=== PATIENT | male | born 1965 | race Caucasian/White ===

== ENCOUNTER 2025-01-01 16:03 | Emergency (ER) | payer OTHER, SELFPAY ==
[2025-01-01] VITALS (8 sets, daily range): BP systolic 130–149; BP diastolic 82–102; PULSE 58–94; RESP 18–20; TEMP 36.5; O2SAT 94–97; BMI 31.5
--- OUTSIDE RECORDS SUMMARY | 2025-01-01 16:05 | XMS_ITS | Clinical Summary ---
Author Organization [facility] Address [address], [place] [address] Care Team Providers Care Container Filler Name Role Phone Found, No Pcp MD Primary Care Provider Unavailab le Source Comments You are receiving this document as you are listed as the primary care provider,follow-up provider, or the patient has been referred to you for consultation.This is in compliance with the Medicare andMedicaid EHR Incentive Program,which states Providers who transition their patient to another setting of careor provider of care or refers their patient to another provider of care shouldprovide summary care record for each transition of care or referral. [facility] Allergies No known active allergies Medications No known medications Social History Tobacco Use Types Packs/Day Years Used Date Smoking Tobacco: Never Alcohol Use Standard Drinks/Week Comments Yes 0 (1 standard drink = 0.6 oz pur e alcohol) Sex and Gender Information Value Date Recorded Sex Assigned at Not on file Legal Sex Male 12:10 PM CDT Gender Identity Not on file Sexual Orientation Not on file Last Filed Vital Signs Vital Sign Reading Time Taken Comments Blood Pressure 110/70 06/19/2016 2:22 PM CDT Pulse 68 06/19/2016 2:22 PM CDT Temperature - - Respiratory Rate 16 06/19/2016 2:22 PM CDT Oxygen Saturation - - Inhaled Oxygen Concentration - - Weight 88.9 kg (196 lb) 06/19/2016 2:22 PM CDT Height 167.6 cm (5' 6) 06/19/2016 2:22 PM CDT Body Mass Index 31.64 06/19/2016 2:22 PM CDT Plan of Treatment Health Maintenance Due Date Last Done Comments Colon Cancer Screening Plan Due 1965 Hep C Screening (Preventive Services) 1965 PSA Screening Discussion 1965 HIV Screening (Preventive Services) 1981 Adult Preventive Visit 1983 DTaP/Tdap/Td (1 - Tdap) 1984 HepB (1) 1984 Cholesterol 2000 Pneumococcal 50+ Yrs (1 of 1 - PCV) 2015 Zoster/Shingles (1 of 2) 2015 COVID-19 Vaccine ( - 2023-2 5 season) 2024 Influenza (#1) 2024 HepA Aged Out No longer eligi ble based on patient's age to complete this topic Hib Aged Out No longer eligi ble based on patient's age to complete this topic IPV (Polio) Aged Out No longer eligi ble based on patient's age to complete this topic MCV4 Aged Out No longer eligi ble based on patient's age to complete this topic Meningococcal B Aged Out No longer el igible based on patient's age to complete this topic Care Teams Container Filler Relationship Specialty Start Date End Date Found, No Pcp, [address] [place] [address] PCP - General 02/14/18
--- OUTSIDE RECORDS SUMMARY | 2025-01-01 16:05 | XMS_ITS | Clinical Summary ---
Author Organization [facility] Address [address] [place] [id number] Care Team Providers Care Heeler Machine Name Role Phone Pcp, No Primary Care Provider Unavailabl e Allergies No known active allergies Medications buPROPion (WELLBUTRIN) 100 mg tablet Take 1 tablet by mouth 2 times daily. 0 01/07/2018 Active Social History Tobacco Use Types Packs/Day Years Used Date Smoking Tobacco: Former Cigarettes 1 20 Smokeless Tobacco: Never Alcohol Use Standard Drinks/Week Comments No 0 (1 standard drink = 0.6 oz pur e alcohol) Sex and Gender Information Value Date Recorded Sex Assigned at Not on file Legal Sex Male 8:14 AM CDT Gender Identity Not on file Sexual Orientation Not on file Obstetrics History Last Filed Vital Signs Vital Sign Reading Time Taken Comments Blood Pressure 137/83 01/07/2018 10:38 AM CDT Pulse 53 01/07/2018 10:38 AM CDT Temperature 36.3 C (97.3 F) 01/07/2018 10:38 AM CDT Respiratory Rate - - Oxygen Saturation 99% 01/07/2018 10:38 AM CDT Inhaled Oxygen Concentration - - Weight 94.8 kg (209 lb 1.6 oz) 01/07/2018 10:38 AM CDT Height 167.4 cm (5' 5.91) 01/07/2018 10:38 AM C DT Body Mass Index 33.85 01/07/2018 10:38 AM CDT Plan of Treatment Health Maintenance Due Date Last Done Comments Tdap 1976 Depression screening for age 12+ 1977 HIV for age 15-65 1980 Hepatitis C screening for age 18-79 1983 Tetanus booster 1985 Colonoscopy through age 75 2010 Lipids for age 45-75 2010 Pneumococcal series for age 50+ (1 of 1 - PCV) 015 Zoster (shingles) series for age 50+ (1 of 2) 03/17/20 15 BMI (ht and wt on same day) for age 18+ 01/07/2019 0 01/07/2018 COVID-19 vaccine series (2023- season) 4 Influenza Vaccine (#1) 2024 Insurance [facility] [place] [address] Care Teams Heeler Machine Relationship Specialty Start Date End Date Pcp, No . PCP - General 01/07/18
--- NOTE | 2025-01-01 16:22 | CRLHL7_ITS ---
For Patients: As a result of the Century Cures Act, medical imaging exams and procedure reports are released immediately into your electronic medical record. You may view this report before your referring provider. If you have questions, please contact your health care provider. Indication: Trauma. Technique: Noncontrast CT images of the cervical spine. Comparison: None. Findings: Recent fracture of the C1 anterior arch demonstrating 5 mm distraction. Recent fractures of the C1 posterior arches, demonstrating mild distraction on the right. No widening of the atlantooccipital or atlantoaxial joints. The atlantodental interval is maintained. The cervical lordosis is maintained. Mild rightward cervical curvature. Multilevel disc height loss, severe at C6-7. Multilevel posterior disc osteophyte complex is contributing to mild spinal canal narrowing. Multilevel uncinate spurring and facet arthropathy contributing up to moderate neural foraminal stenosis bilaterally at C6-7. No concerning opacities in the visualized lungs. Impression: 1. Recent, distracted fractures of the C1 anterior and posterior arches (Martínez fracture). No widening of the atlantodental interval or atlantooccipital joints. 2. Multilevel cervical spondylosis without high-grade spinal canal stenosis. Please note that all CT scans at this facility use dose modulation, iterative reconstruction, and/or weight-based dosing when appropriate to reduce radiation dose to as low as reasonably achievable. Dictated by Randal Josue MD @ 01/01/2025 5:02:00 PM (Electronically Signed)
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
--- OUTSIDE RECORDS SUMMARY | 2025-01-01 16:43 | XMS_ITS | Clinical Summary ---
Author Organization [facility] Address [address] [place] [id number] Care Team Providers Care Kitchen Cleaner Name Role Phone Pcp, No Primary Care [...] season) 4 Influenza Vaccine (#1) 2024 Insurance [facility] Care Teams Kitchen Cleaner Relationship Specialty Start Date End Date Pcp, No . PCP - General 01/07/18
--- OUTSIDE RECORDS SUMMARY | 2025-01-01 16:43 | XMS_ITS | Clinical Summary ---
Author Organization [facility] Address [address] [address] Care Team Providers Care Office Helper Name Role Phone Found, No Pcp MD [...] age to complete this topic Care Teams Office Helper Relationship Specialty Start Date End Date Found, No Pcp, [address] [place] [address] PCP - General 02/14/18
== END 2025-01-01 19:30 | disposition other institution (70) ==
PROVIDERS: Emergency Provider Family Medicine
DX: S12.01XA Stable burst fracture of first cervical vertebra, initial encounter for closed fracture (principal); V19.3XXA Pedal cyclist (driver) (passenger) injured in unspecified nontraffic accident, initial encounter
CPT/HCPCS: 72125; 99284; 99285

== ENCOUNTER 2025-01-01 19:16 | Outpatient (CLI) | payer OTHER, SELFPAY | END 2025-01-01 19:17 | disposition home or self-care (01) | LOC: AMB 01-04 10:16 | PROVIDERS: Visit Provider Emergency Medicine | DX: S12.01XA Stable burst fracture of first cervical vertebra, initial encounter for closed fracture (principal) | CPT/HCPCS: A0425; A0427 ==